=== PATIENT | female | born 1970 | race Caucasian/White ===

== ENCOUNTER 2021-06-16 17:35 | Emergency (ER) | payer MEDICAID ==
[~2021-06-16] VITALS: Ht 160 cm; Wt 86.4 kg
[2021-06-16 17:57] VITALS: TEMP 98.6
[2021-06-16] MEDS ORDERED: PREDNISONE20 MG PO (18:49)
[2021-06-16 19:19] VITALS: BP 158/87; PULSE 95
--- NOTE | 2021-06-17 13:51 | NUR ---
Patient returned back to the ER today stating that she is unable to afford her perscriptions that the ER physician wrote on 06/18/21. Patient is here from [place] and has [place] BERN[place], however the pharmacy will not accept this due to being out of state. This manager social media provided medication voucher to [facility].
== END 2021-06-16 19:19 | disposition home or self-care (01) ==
LOC: COL.ER 17:35
DX: J45.909 Unspecified asthma, uncomplicated (principal); F17.210 Nicotine dependence, cigarettes, uncomplicated
CPT/HCPCS: J7512